=== PATIENT | male | born 1955 ===

== ENCOUNTER 2021-07-20 15:55 | Inpatient (IN) | payer OTHER ==
[~2021-07-20] VITALS: Ht 177.8 cm; Wt 96.3 kg
[2021-07-20] MEDS ORDERED: SODIUM CHLORIDE 0.9% 1,000 ML IV ONE (17:15)
[2021-07-20 17:33] LABS: Basophils # (auto) 0 10 ^3/uL (0-0.2); Basophils % (auto) 0.2 % (0.0-2.0); Eosinophils # (auto) 0 10 ^3/uL (0-0.8); Eosinophils % (auto) 0.2 % (0.0-7.0); Lymphocytes # (auto) 0.9 10 ^3/uL (0.4-5.4); Monocytes # (auto) 0.4 10 ^3/uL (0-1.3); White Blood Cell 6.3 10^3/uL (4.4-10.8)
[2021-07-20 17:35] LABS: Lymphocytes % (auto) 14.6 % (10.0-50.0); Mean Corpuscular Hemoglobin 21.7 pg (28.0-32.0); Mean Corpuscular Volume 67.6 fL (80.0-100.0); Monocytes % (auto) 6.1 % (0.0-12.0); Neutrophils % (auto) 78.9 % (37.0-80.0)
[2021-07-20 17:51] LABS: Albumin 1.9 g/dL (3.4-5.0); Anion Gap 7 (5-15); Aspartate Aminotransferase 10 U/L (15-37); BUN/Creatinine Ratio 41.7; Blood Urea Nitrogen 30 mg/dL (7-18); Calcium 9.2 mg/dL (8.5-10.1); Carbon Dioxide 25 mmol/L (21-32); Chloride 100 mmol/L (98-107); GFR African American 140 mL/min; GFR Non-African American 116 mL/min; Glucose 138 mg/dL (74-106); INR 1.25 (0.9-1.15); Partial Thromboplastin Time 28.3 sec (23.6-33.0); Potassium 4.6 mmol/L (3.5-5.1); Sodium 132 mmol/L (136-145)
[2021-07-20 17:53] LABS: Alkaline Phosphatase 108 U/L (45-117); Total Protein 6.7 g/dL (6.4-8.2)
[2021-07-20 18:05] LABS: Alanine Aminotransferase < 6 U/L (16-61)
[2021-07-20] MEDS ORDERED: DEXTROSE (50%) 50ML SYRG IV PRN (21:00)
[2021-07-20] MEDS ORDERED: ACETAMINOPHEN 325 MG TAB PO PRN (21:00)
[2021-07-20] MEDS ORDERED: ONDANSETRON HCL 4 MG/2 ML VIAL IV PRN (21:00)
[2021-07-20] MEDS ORDERED: ACCU-CHEK COMFORT CURVE STRIP VI SCH (22:00)
[2021-07-20] MEDS ORDERED: InsuLIN REG 1unit/0.01ml Soln (100units/ml) SC SCH (22:00)
[2021-07-21] MEDS ORDERED: metroNIDAZOLE 500MG/100ML 100 ML IV ONE (03:00)
[2021-07-21] MEDS ORDERED: CLINDAMYCIN 600MG IV 50 ML IV ONE (03:00)
[2021-07-21] MEDS ORDERED: VANCOMYCIN 1,500 MG in D5W 5% 250 ML IV SCH (03:30)
[2021-07-21] MEDS ORDERED: VANCOMYCIN 1GM/250ML 250 ML IV ONE ×2 (04:12→04:16)
[2021-07-21 04:14] LABS: Urine WBC None Seen /hpf (0 - 3)
[2021-07-21 05:13] LABS: Urine Bacteria NONE SEEN /hpf (None Seen); Urine Blood TRACE /uL (Negative); Urine Mucus MANY (None Seen); Urine Specific Gravity 1.028 (1.001-1.035)
[2021-07-21] MEDS ORDERED: LISINOPRIL 10 MG TAB PO SCH (10:00)
[2021-07-21] MEDS ORDERED: ENOXAPARIN SOD 40 MG/0.4 ML SYRINGE SC SCH (10:00)
[2021-07-21] MEDS ORDERED: NITROGLYCERIN 0.4 MG SL TAB SL PRN (14:00)
[2021-07-21] MEDS ORDERED: MORPHINE SULFATE 4 MG/ML SYR/VIAL IV PRN (14:00)
[2021-07-21] MEDS ORDERED: VANCOMYCIN PER PHARMACY 0 MG IV SCH (14:00)
[2021-07-21] MEDS ORDERED: MORPHINE SULFATE INJECTION 2 MG/ML SYRG IV PRN ×2 (14:00)
[2021-07-21] MEDS ORDERED: METOCLOPRAMIDE HCL 5MG/ml INJ 2ml VIAL IV PRN (14:00)
[2021-07-21] MEDS ORDERED: DEXTROSE (50%) 50ML SYRG IV PRN (14:15)
[2021-07-21] MEDS ORDERED: levoFLOXacin 750MG 150 ML IV SCH (15:00)
[2021-07-21] MEDS: SODIUM CHLORIDE 0.9% 1,000 ML IV SCH (15:02)
[2021-07-21] MEDS: SODIUM FERR GLUC 62.5MG/5ML 125 MG in SODIUM CHL 0.9% 100 ML IV SCH (15:32)
[2021-07-21] MEDS: ACCU-CHEK COMFORT CURVE STRIP VI SCH ×2 (16:16→22:53)
[2021-07-21] MEDS: InsuLIN REG 1unit/0.01ml Soln (100units/ml) SC SCH ×2 (16:16→22:54)
[2021-07-21] MEDS ORDERED: diphenhdrAMINE HCL 50 MG/1 ML VL IV PRN (16:45)
[2021-07-21] MEDS ORDERED: MEROPENEM 1GM IVPB 100 ML IV ONE (17:00)
[2021-07-21 17:36] LABS: CRP High Sensitivity 8.26 mg/dL (< 0.3)
[2021-07-21] MEDS: VANCOMYCIN 1GM/250ML 250 ML IV SCH (18:29)
[2021-07-21 21:15] LABS: INR 1.36 (0.9-1.15); Partial Thromboplastin Time 31.9 sec (23.6-33.0)
[2021-07-21 22:00] VITALS: BP 169/67
[2021-07-21] MEDS ORDERED: METOPROLOL TARTRATE 25 MG TAB PO SCH (22:00)
[2021-07-21] MEDS: METOPROLOL TARTRATE 25 MG TAB PO SCH (22:38)
[2021-07-21] MEDS: ACETAMINOPHEN 325 MG TAB PO PRN (22:53)
[2021-07-22] VITALS (9 sets, daily range): BP systolic 103–153; BP diastolic 46–100
[2021-07-22] MEDS: SODIUM CHLORIDE 0.9% 1,000 ML IV SCH ×3 (04:17→22:00)
[2021-07-22] MEDS: VANCOMYCIN 1GM/250ML 250 ML IV SCH (04:37)
[2021-07-22] MEDS: ACCU-CHEK COMFORT CURVE STRIP VI SCH ×4 (06:13→22:00)
[2021-07-22] MEDS: InsuLIN REG 1unit/0.01ml Soln (100units/ml) SC SCH ×4 (06:13→22:00)
[2021-07-22 07:24] LABS: Basophils # (auto) 0 10 ^3/uL (0-0.2); Eosinophils # (auto) 0 10 ^3/uL (0-0.8); Hematocrit 22.7 % (41.0-53.0); Lymphocytes # (auto) 0.9 10 ^3/uL (0.4-5.4); Lymphocytes % (auto) 13.8 % (10.0-50.0); Monocytes # (auto) 0.4 10 ^3/uL (0-1.3); Nucleated Red Blood Cells % 0.1 %
[2021-07-22 07:28] LABS: Eosinophils % (auto) 0.1 % (0.0-7.0); Monocytes % (auto) 5.9 % (0.0-12.0); Neutrophils # (auto) 5.5 10 ^3/uL (1.6-8.6); Neutrophils % (auto) 80.2 % (37.0-80.0); Red Blood Cells 3.33 10^6/uL (4.5-5.90); White Blood Cell 6.8 10^3/uL (4.4-10.8)
[2021-07-22 07:36] LABS: INR 1.37 (0.9-1.15); Partial Thromboplastin Time 32.5 sec (23.6-33.0)
[2021-07-22 07:39] LABS: Mean Corpuscular Hemoglobin 21.1 pg (28.0-32.0); Mean Corpuscular Volume 68.1 fL (80.0-100.0); Red Cell Distribution Width 21.7 % (11.8-14.3)
[2021-07-22 07:46] LABS: Chloride 103 mmol/L (98-107); Potassium 3.9 mmol/L (3.5-5.1); Sodium 134 mmol/L (136-145)
[2021-07-22 08:14] LABS: Alkaline Phosphatase 93 U/L (45-117); Anion Gap 8 (5-15); Aspartate Aminotransferase 7 U/L (15-37); BUN/Creatinine Ratio 53.3; Blood Urea Nitrogen 24 mg/dL (7-18); Carbon Dioxide 23 mmol/L (21-32); GFR African American 241 mL/min; GFR Non-African American 199 mL/min; Glucose 119 mg/dL (74-106)
[2021-07-22 08:15] LABS: Alanine Aminotransferase < 6 U/L (16-61); Albumin 1.7 g/dL (3.4-5.0); Bilirubin, Total 0.7 mg/dL (0.2-1.0); CRP High Sensitivity 7.76 mg/dL (< 0.3); Calcium 8.7 mg/dL (8.5-10.1); Total Protein 5.8 g/dL (6.4-8.2)
[2021-07-22] MEDS: METOPROLOL TARTRATE 25 MG TAB PO SCH ×2 (09:37→22:00)
[2021-07-22] MEDS: FAMOTIDINE 20 MG TAB PO SCH (09:37)
[2021-07-22] MEDS ORDERED: PHYTONADIONE (VIT K)10 MG/ML 1ML VIAL SUBCUT ONE (13:15)
[2021-07-22] MEDS: MEROPENEM 1GM IVPB 100 ML IV SCH ×2 (17:19→22:00)
[2021-07-22] MEDS: SODIUM FERR GLUC 62.5MG/5ML 125 MG in SODIUM CHL 0.9% 100 ML IV SCH (18:03)
[2021-07-23 05:00] VITALS: BP 169/58
[2021-07-23] MEDS: MEROPENEM 1GM IVPB 100 ML IV SCH ×3 (06:00→22:00)
[2021-07-23] MEDS: SODIUM CHLORIDE 0.9% 1,000 ML IV SCH (06:00)
[2021-07-23] MEDS: InsuLIN REG 1unit/0.01ml Soln (100units/ml) SC SCH ×4 (06:36→22:00)
[2021-07-23 06:57] LABS: Basophils # (auto) 0 10 ^3/uL (0-0.2); Basophils % (auto) 0.3 % (0.0-2.0); Eosinophils # (auto) 0 10 ^3/uL (0-0.8); Eosinophils % (auto) 0.1 % (0.0-7.0); Hematocrit 23.9 % (41.0-53.0); Hemoglobin 7.6 g/dL (13.5-17.5); Lymphocytes % (auto) 17.8 % (10.0-50.0); Mean Corpuscular Hgb Conc. 31.8 g/dL (32.0-36.0); Monocytes # (auto) 0.4 10 ^3/uL (0-1.3); Monocytes % (auto) 6.4 % (0.0-12.0); Neutrophils # (auto) 4.4 10 ^3/uL (1.6-8.6); Neutrophils % (auto) 75.4 % (37.0-80.0); Nucleated Red Blood Cells % 0.2 %; Red Blood Cells 3.49 10^6/uL (4.5-5.90); White Blood Cell 5.8 10^3/uL (4.4-10.8)
[2021-07-23] MEDS: ACCU-CHEK COMFORT CURVE STRIP VI SCH ×4 (07:00→22:00)
[2021-07-23 07:01] LABS: Mean Corpuscular Hemoglobin 21.8 pg (28.0-32.0); Mean Corpuscular Volume 68.4 fL (80.0-100.0); Red Cell Distribution Width 22.4 % (11.8-14.3)
[2021-07-23 08:00] VITALS: BP_SYST 119; BP_SYST 128; BP_DIAS 59
[2021-07-23] MEDS: FAMOTIDINE 20 MG TAB PO SCH (10:00)
[2021-07-23] MEDS: VANCOMYCIN 1GM/250ML 250 ML IV SCH ×3 (10:00→20:00)
[2021-07-23] MEDS: METOPROLOL TARTRATE 25 MG TAB PO SCH (10:00)
[2021-07-23] MEDS: SODIUM FERR GLUC 62.5MG/5ML 125 MG in SODIUM CHL 0.9% 100 ML IV SCH (11:55)
[2021-07-23 12:00] VITALS: BP 116/49
[2021-07-23 14:17] LABS: % Iron Saturation 58.2 % (20-55)
[2021-07-23] MEDS: ACETAMINOPHEN 325 MG TAB PO PRN (15:54)
[2021-07-23 17:00] VITALS: BP 132/59
[2021-07-23 20:00] VITALS: BP 156/69
[2021-07-23] MEDS: FERROUS SULFATE 325mg EC TAB PO SCH (20:44)
[2021-07-23 22:00] VITALS: BP 156/69
[2021-07-24 05:30] VITALS: BP 147/55
[2021-07-24] MEDS: VANCOMYCIN 1GM/250ML 250 ML IV SCH ×2 (06:00→06:30)
[2021-07-24] MEDS: InsuLIN REG 1unit/0.01ml Soln (100units/ml) SC SCH ×4 (06:46→22:41)
[2021-07-24] MEDS: ACCU-CHEK COMFORT CURVE STRIP VI SCH ×4 (06:47→22:47)
[2021-07-24] MEDS ORDERED: POVIDONE IODINE 10 % TOPICAL OINT 30GM TOP ONE (07:35)
[2021-07-24 08:00] VITALS: BP 156/69
[2021-07-24] MEDS: FERROUS SULFATE 325mg EC TAB PO SCH ×2 (08:00→18:26)
[2021-07-24 09:00] VITALS: BP 124/62
[2021-07-24] MEDS: FAMOTIDINE 20 MG TAB PO SCH (10:00)
[2021-07-24] MEDS: METOPROLOL TARTRATE 25 MG TAB PO SCH ×2 (10:00→22:00)
[2021-07-24] MEDS: SODIUM FERR GLUC 62.5MG/5ML 125 MG in SODIUM CHL 0.9% 100 ML IV SCH (12:00)
[2021-07-24] MEDS ORDERED: BUPIVACAINE 0.5% P/F INJ 10 ML VIAL ONE (12:38)
[2021-07-24] MEDS ORDERED: fentaNYL CITRATE 100 MCG/2 ML VL ONE (12:43)
[2021-07-24] MEDS ORDERED: MIDAZOLAM HCL 2MG/2ML 2ml VIAL (1mg/ml) ONE (12:44)
[2021-07-24] MEDS ORDERED: DexAMETHasone SOD PHOS 10MG/1ML VIAL INJ ONE (13:07)
[2021-07-24] MEDS ORDERED: MORPHINE SULFATE 4 MG/ML SYR/VIAL IV PRN (13:45)
[2021-07-24] MEDS ORDERED: LABETALOL HCL 5 MG/ML 4ML SYRINGE IV PRN (13:45)
[2021-07-24] MEDS ORDERED: hydrALAZINE HCL 20 MG/ML VL IV PRN (13:45)
[2021-07-24] MEDS ORDERED: ACCU-CHEK COMFORT CURVE STRIP VI ONE (13:45)
[2021-07-24] MEDS ORDERED: MIDAZOLAM HCL 2MG/2ML 2ml VIAL (1mg/ml) IV PRN (13:45)
[2021-07-24] MEDS ORDERED: ePHEDrine SULFATE 50 MG/ML AMP IV PRN (13:45)
[2021-07-24] MEDS ORDERED: HYDROmorphone HCL 2 MG/ML VL IV PRN (13:45)
[2021-07-24] MEDS ORDERED: ONDANSETRON HCL 4 MG/2 ML VIAL IV PRN (13:45)
[2021-07-24] MEDS: MEROPENEM 1GM IVPB 100 ML IV SCH ×2 (14:00→22:49)
[2021-07-24] MEDS ORDERED: PROPOFOL 10 MG/ML 20 ML IV ONE (14:46)
[2021-07-24 17:00] VITALS: BP 121/58
[2021-07-24 18:00] VITALS: BP 118/60
[2021-07-24 22:00] VITALS: BP 133/66
[2021-07-24] MEDS ORDERED: MEROPENEM 500 MG IV ONE (23:58)
[2021-07-25 05:00] VITALS: BP 135/60
[2021-07-25] MEDS ORDERED: VANCOMYCIN 1GM/250ML 250 ML IV SCH (05:00)
[2021-07-25 06:16] LABS: Basophils # (auto) 0 10 ^3/uL (0-0.2); Eosinophils # (auto) 0 10 ^3/uL (0-0.8); Hemoglobin 7.1 g/dL (13.5-17.5); Lymphocytes # (auto) 0.8 10 ^3/uL (0.4-5.4); Monocytes # (auto) 0.2 10 ^3/uL (0-1.3)
[2021-07-25 06:19] LABS: Hematocrit 22.4 % (41.0-53.0); Lymphocytes % (auto) 18.2 % (10.0-50.0); Mean Corpuscular Hgb Conc. 31.8 g/dL (32.0-36.0); Monocytes % (auto) 4.7 % (0.0-12.0); Neutrophils # (auto) 3.5 10 ^3/uL (1.6-8.6); Neutrophils % (auto) 77.1 % (37.0-80.0); Nucleated Red Blood Cells % 0.2 %; Red Blood Cells 3.18 10^6/uL (4.5-5.90); White Blood Cell 4.5 10^3/uL (4.4-10.8)
[2021-07-25 06:28] LABS: Potassium 3.7 mmol/L (3.5-5.1)
[2021-07-25 06:32] LABS: BUN/Creatinine Ratio 53.8; Calcium 8.3 mg/dL (8.5-10.1)
[2021-07-25 06:47] LABS: Mean Corpuscular Hemoglobin 22.4 pg (28.0-32.0); Mean Corpuscular Volume 70.4 fL (80.0-100.0); Red Cell Distribution Width 23.1 % (11.8-14.3)
[2021-07-25] MEDS: InsuLIN REG 1unit/0.01ml Soln (100units/ml) SC SCH ×4 (07:08→22:00)
[2021-07-25] MEDS: ACCU-CHEK COMFORT CURVE STRIP VI SCH ×4 (07:08→23:05)
[2021-07-25] MEDS: MEROPENEM 1GM IVPB 100 ML IV SCH ×2 (07:12→14:00)
[2021-07-25 09:00] VITALS: BP 106/55
[2021-07-25] MEDS: FAMOTIDINE 20 MG TAB PO SCH (09:26)
[2021-07-25] MEDS: FERROUS SULFATE 325mg EC TAB PO SCH ×2 (09:26→18:46)
[2021-07-25] MEDS: METOPROLOL TARTRATE 25 MG TAB PO SCH ×2 (09:26→22:00)
[2021-07-25 13:00] VITALS: BP 111/56
[2021-07-25 17:00] VITALS: BP 121/73
[2021-07-25 20:00] VITALS: BP 157/68
[2021-07-25 22:00] VITALS: BP 157/38
[2021-07-26 05:00] VITALS: BP 130/61
[2021-07-26 06:14] LABS: Basophils # (auto) 0 10 ^3/uL (0-0.2); Basophils % (auto) 0.1 % (0.0-2.0); Eosinophils # (auto) 0 10 ^3/uL (0-0.8); Monocytes # (auto) 0.4 10 ^3/uL (0-1.3); Neutrophils # (auto) 3.1 10 ^3/uL (1.6-8.6)
[2021-07-26 06:16] LABS: Eosinophils % (auto) 0.2 % (0.0-7.0); Hematocrit 20.7 % (41.0-53.0); Lymphocytes # (auto) 1.5 10 ^3/uL (0.4-5.4); Lymphocytes % (auto) 29.3 % (10.0-50.0); Mean Corpuscular Hgb Conc. 32.7 g/dL (32.0-36.0); Monocytes % (auto) 8.6 % (0.0-12.0); Neutrophils % (auto) 61.8 % (37.0-80.0); Nucleated Red Blood Cells % 0.2 %; Red Blood Cells 2.98 10^6/uL (4.5-5.90)
[2021-07-26] MEDS: ACETAMINOPHEN 325 MG TAB PO PRN (06:27)
[2021-07-26 06:39] LABS: Potassium 3.8 mmol/L (3.5-5.1)
[2021-07-26 06:45] LABS: Calcium 8.6 mg/dL (8.5-10.1)
[2021-07-26] MEDS: InsuLIN REG 1unit/0.01ml Soln (100units/ml) SC SCH ×3 (07:00→17:00)
[2021-07-26 08:23] LABS: Hemoglobin 6.8 g/dL (13.5-17.5); Mean Corpuscular Hemoglobin 22.8 pg (28.0-32.0); Mean Corpuscular Volume 69.6 fL (80.0-100.0); Red Cell Distribution Width 23.6 % (11.8-14.3)
[2021-07-26 09:00] VITALS: BP 116/53
[2021-07-26] MEDS: METOPROLOL TARTRATE 25 MG TAB PO SCH ×2 (10:00→22:05)
[2021-07-26] MEDS: FAMOTIDINE 20 MG TAB PO SCH (10:26)
[2021-07-26] MEDS: FERROUS SULFATE 325mg EC TAB PO SCH ×2 (10:26→18:35)
[2021-07-26] MEDS: ACCU-CHEK COMFORT CURVE STRIP VI SCH ×2 (11:30→17:00)
[2021-07-26 13:00] VITALS: BP 119/59
[2021-07-26] MEDS: MEROPENEM 1GM IVPB 100 ML IV SCH (14:00)
[2021-07-26 16:00] VITALS: BP 140/62
[2021-07-26] MEDS ORDERED: VANCOMYCIN 500 MG in D5W 5% 100 ML IV ONE (18:00)
[2021-07-26 20:00] VITALS: BP 145/49
[2021-07-26 22:00] VITALS: BP 145/49
[2021-07-27] VITALS (9 sets, daily range): BP systolic 117–147; BP diastolic 36–82
[2021-07-27] MEDS: MEROPENEM 1GM IVPB 100 ML IV SCH ×6 (04:02→21:40)
[2021-07-27] MEDS: InsuLIN REG 1unit/0.01ml Soln (100units/ml) SC SCH ×5 (04:15→21:31)
[2021-07-27] MEDS: ACCU-CHEK COMFORT CURVE STRIP VI SCH ×5 (04:19→21:30)
[2021-07-27 08:28] LABS: Basophils # (auto) 0 10 ^3/uL (0-0.2); Basophils % (auto) 0.1 % (0.0-2.0); Eosinophils # (auto) 0 10 ^3/uL (0-0.8); Eosinophils % (auto) 0.3 % (0.0-7.0); Hematocrit 21.4 % (41.0-53.0); Lymphocytes # (auto) 1.7 10 ^3/uL (0.4-5.4); Mean Corpuscular Volume 70.2 fL (80.0-100.0); Monocytes # (auto) 0.4 10 ^3/uL (0-1.3); Neutrophils # (auto) 3.7 10 ^3/uL (1.6-8.6); Red Blood Cells 3.05 10^6/uL (4.5-5.90); White Blood Cell 5.9 10^3/uL (4.4-10.8)
[2021-07-27 08:31] LABS: Lymphocytes % (auto) 28.7 % (10.0-50.0); Mean Corpuscular Hemoglobin 22.3 pg (28.0-32.0); Mean Corpuscular Hgb Conc. 31.8 g/dL (32.0-36.0); Monocytes % (auto) 7.3 % (0.0-12.0); Neutrophils % (auto) 63.6 % (37.0-80.0); Nucleated Red Blood Cells % 0.1 %; Red Cell Distribution Width 23.7 % (11.8-14.3)
[2021-07-27 08:45] LABS: Hemoglobin 6.8 g/dL (13.5-17.5)
[2021-07-27 08:54] LABS: Potassium 3.7 mmol/L (3.5-5.1)
[2021-07-27 09:07] LABS: Calcium 8.5 mg/dL (8.5-10.1)
[2021-07-27] MEDS: FAMOTIDINE 20 MG TAB PO SCH (09:28)
[2021-07-27] MEDS: ACETAMINOPHEN 325 MG TAB PO PRN (09:29)
[2021-07-27] MEDS: FERROUS SULFATE 325mg EC TAB PO SCH ×2 (09:29→18:00)
[2021-07-27] MEDS: METOPROLOL TARTRATE 25 MG TAB PO SCH ×2 (09:29→21:29)
[2021-07-27] MEDS: VANCOMYCIN 1GM/250ML 250 ML IV SCH (13:00)
[2021-07-27 15:37] LABS: Hematocrit 24.4 % (41.0-53.0); Hemoglobin 7.9 g/dL (13.5-17.5)
[2021-07-27 22:53] LABS: INR 1.22 (0.9-1.15); Partial Thromboplastin Time 31.7 sec (23.6-33.0)
[2021-07-28] MEDS: VANCOMYCIN 1GM/250ML 250 ML IV SCH ×2 (03:00→13:00)
[2021-07-28 05:00] VITALS: BP 158/48
[2021-07-28] MEDS: MEROPENEM 1GM IVPB 100 ML IV SCH ×2 (05:59→15:04)
[2021-07-28] MEDS: ACCU-CHEK COMFORT CURVE STRIP VI SCH ×2 (05:59→11:50)
[2021-07-28] MEDS: InsuLIN REG 1unit/0.01ml Soln (100units/ml) SC SCH ×2 (06:00→11:30)
[2021-07-28 09:00] VITALS: BP 132/58
[2021-07-28] MEDS: FAMOTIDINE 20 MG TAB PO SCH (09:28)
[2021-07-28] MEDS: FERROUS SULFATE 325mg EC TAB PO SCH (09:28)
[2021-07-28] MEDS: METOPROLOL TARTRATE 25 MG TAB PO SCH (09:29)
[2021-07-28] MEDS ORDERED: LIDOCAINE 2%HCL (LOCAL ANESTH.) INJ 20ML MDV ONE (11:36)
[2021-07-28] MEDS ORDERED: IOHEXOL 300 MG/ML 100ML BOTTLE IJ ONE (11:59)
[2021-07-28 13:00] VITALS: BP 120/57
[2021-07-28] MEDS ORDERED: APIX5TAB PO (13:55)
[2021-07-28] MEDS ORDERED: ASPI-543 PO (13:55)
[2021-07-28] MEDS ORDERED: ATOR-47 PO (13:55)
[2021-07-28] MEDS ORDERED: METO25TA93 PO (13:55)
[2021-07-28] MEDS ORDERED: [UNRECOGNIZED DRUG - CODE] PO (13:55)
[2021-07-28] MEDS ORDERED: METF-370 PO (13:55)
[2021-07-28] MEDS ORDERED: ENAL20TA93 PO (13:55)
[2021-07-28] MEDS ORDERED: EMPA1TAB3 PO (13:55)
[2021-07-28] MEDS ORDERED: SPIR25TA8 PO (13:56)
[2021-07-28] MEDS ORDERED: PANT40TA2 PO (13:56)
[2021-07-28] MEDS ORDERED: SENN-167 PO (13:56)
[2021-07-28] MEDS ORDERED: LIDOCAINE 1% (LOCAL ANESTH.) PF 5ml SDV ID ONE (14:00)
[2021-07-28 14:26] VITALS: BP 120/57
[2021-07-28 14:36] VITALS: BP 120/57
[2021-07-28] MEDS ORDERED: SODIUM CHLOR 0.9% PF (SALINE LOCK) 10ML VIAL/SYR IV SCH (22:00)
== END 2021-07-28 16:24 | DRG 239 ==
LOC: EDBD 15:55 → ER 16:03 → OVERFLOW 21:00 → CENTRAL 07-21 21:05
PROVIDERS: ADMIT Nurse Practitioner; ATTEND Hospitalist
PROC: 05HD33Z Insertion of Infusion Device into Right Cephalic Vein, Percutaneous Approach (ICD-10-PCS; principal; 2021-07-22)
PROC: B54MZZA Ultrasonography of Right Upper Extremity Veins, Guidance (ICD-10-PCS; 2021-07-22)
PROC: 30233N1 Transfusion of Nonautologous Red Blood Cells into Peripheral Vein, Percutaneous Approach (ICD-10-PCS; 2021-07-22)
PROC: 0Y6J0Z1 Detachment at Left Lower Leg, High, Open Approach (ICD-10-PCS; 2021-07-24)
PROC: 02H633Z Insertion of Infusion Device into Right Atrium, Percutaneous Approach (ICD-10-PCS; 2021-07-28)
PROC: B5181ZA Fluoroscopy of Superior Vena Cava using Low Osmolar Contrast, Guidance (ICD-10-PCS; 2021-07-28)
PROC: B548ZZA Ultrasonography of Superior Vena Cava, Guidance (ICD-10-PCS; 2021-07-28)
DX: E11.52 Type 2 diabetes mellitus with diabetic peripheral angiopathy with gangrene (principal); A48.0 Gas gangrene; M86.8X6 Other osteomyelitis, lower leg; E44.0 Moderate protein-calorie malnutrition; D62 Acute posthemorrhagic anemia; M86.10 Other acute osteomyelitis, unspecified site; E11.69 Type 2 diabetes mellitus with other specified complication; I50.9 Heart failure, unspecified; I25.10 Atherosclerotic heart disease of native coronary artery without angina pectoris; I11.0 Hypertensive heart disease with heart failure; Z20.822 Contact with and (suspected) exposure to COVID-19; R53.81 Other malaise; Z82.49 Family history of ischemic heart disease and other diseases of the circulatory system; Z83.3 Family history of diabetes mellitus; Z74.01 Bed confinement status; Z68.30 Body mass index [BMI] 30.0-30.9, adult; Z95.810 Presence of automatic (implantable) cardiac defibrillator; Z95.1 Presence of aortocoronary bypass graft; Z86.73 Personal history of transient ischemic attack (TIA), and cerebral infarction without residual deficits; Z88.0 Allergy status to penicillin; Z89.511 Acquired absence of right leg below knee
CPT/HCPCS: 36415; 71045; 73700; 76942; 80048; 80053; 80061; 80202; 81001; 82565; 82728; 82962; 83036; 83540; 83550; 83735; 85014; 85018; 85025; 85610; 85730; 86141; 86850; 86900; 86901; 86920; 87040; 87070; 87075; 87076; 87077; 87186; 87205; 87426; 93005; 93306; 96360; 96372; 97163; 97530; C1729; G0378; J1100; J1815; J2185; J2250; J2704; J3430; J3490; J7060